=== PATIENT | female | born 1945 | race Caucasian/White ===

== ENCOUNTER → 2016-11-04 | Outpatient (CLI) | payer MEDICARE, OTHER ==
[~2016-11-04] MED LIST: CALC500T50 PO; CHOL2000 PO; CYCL5TAB PO; FEXO180T5 PO; GLUC100018 PO; IRON1CAP17 PO; MULT-246 PO; NAPR500T PO; OMEG300C PO; OMEP20TA PO; RALO60TA PO; TRAM50TA PO
--- NOTE | 2016-11-05 12:29 | PAIN ---
DATE OF SERVICE: 11/04/2016 INITIAL CONSULTATION FOR PAIN CLINIC CHIEF COMPLAINT: Low back and bilateral lower extremity pain, left greater than right. HISTORY OF PRESENT ILLNESS: This is a 70-year-old female who presents with history of pain in the low back and bilateral lower extremities, again slightly worse on the left than the right. For about 2-3 years, the patient reports it gradually increased. It is not as a result of any specific injury or accident that she is aware of. It has been getting worse with time and pain in the low back radiating to the bilateral posterior gluteus, posterior thighs, posterior calves and into the ankles as well as into the lateral and anterior groin to some extent and lateral lower legs. The patient reports standing for over 5-10 minutes become very uncomfortable and painful, sit down to rest decreases the pain. The patient uses an ice pack on the low back which helps shooting pain and decreases some cramping sensations, worse in the morning. She has to stand at the side of the bed for several minutes before she can adjust her back and get the pain to be less and it is shooting into the leg at this time as well. Pain in the hamstrings reaching above her head and in the hips when walking for greater than 10-15 minutes and cramps in the calves as well with standing and with sitting. The patient reports shooting pain is sharp, changes during the day with activity, radiating into the lower extremities as described and a cramping sensation as well. The patient has tried physical therapy in 06/2016 and 07/2016, also still doing some exercises at home, stretching and strengthening exercises. The patient has had previous lumbar surgery in 2004 with fusion at the L3, L4 and L5 spaces. The patient reports it awakens her from sleep occasionally, but not every night. She takes tramadol before she goes to bed. She sleeps better. It does not affect her bowel or bladder control, but does affect her ability to walk significantly. She is using shopping carts to lean on when she is at the store, also using a cane when ambulating as well. The patient reports she has been taking tramadol, Naprosyn and ibuprofen, all of which helped to a [id number] extent. The patient reports her disability rating from 0 to 10, 10 being the worst as a 6 with family and home responsibilities and occupation, 7 with recreation, 4 with social activity, 2 with sexual behavior, 1 with self care and life support activities. The patient had MRI scan dated 09/15/2016 showing [id number] spinal stenosis, limited preserved subarachnoid space at L2-L3 and lateral recess stenosis bilaterally with posterior lateral fusion and posterior decompression at L3-L5, mild grade 1 anterior spondylolisthesis at L3-L4 and L4-L5, multilevel facet degenerative change and advanced degenerative disk disease at L5-S1 with shallow disk osteophyte complex and protrusion greater in the right lateral recess near the descending right S1 nerve root. PAST MEDICAL HISTORY: Significant for arthritis, osteopenia, knee pain, rheumatic fever at age 11, and cataracts. PREVIOUS SURGERY: Include lumbar laminectomy with fusion in 2004, bilateral total knee arthroplasty in 2012, right carpal tunnel release in the past, LASIK procedure and tonsillectomy as a child. CURRENT MEDICATIONS: Include glucosamine, multivitamin, cyclobenzaprine, Naprosyn, fish oil and tramadol, calcium, vitamin D, iron supplements, Evista, fexofenadine, and omeprazole. ALLERGIES: The patient is allergic to WALNUTS, MOLD, POLLEN, DUST, and BAKING POWDER. FAMILY HISTORY: Significant for cancer in the patient's mother and grandmother, maternal grandfather had stroke at age 80. SOCIAL HISTORY: The patient does not drink alcohol, does not smoke. She is , lives with her spouse locally in [place], [place]. She has granddaughters that stays with her about 3-4 days and nights a week on an average. REVIEW OF SYSTEMS: The patient's review of systems is positive for those items mentioned in history of present illness. All systems reviewed and otherwise negative. It is complete, full and well documented on the patient's chart. PHYSICAL EXAMINATION: VITAL SIGNS: Today the patient's blood pressure is 159/90, pulse is 88, respirations 16, temperature is 98.1 degrees Fahrenheit. Height is 5 feet 6 inches, weight is 232 pounds. GENERAL: The patient is awake, alert, oriented, appropriate, very pleasant demeanor. HEENT: Shows normocephalic, atraumatic. Extraocular movements are intact and symmetrical. Oral cavity: Mucous membranes are moist and pink. Dentition is intact. NECK: Shows anterior throat supple without palpable lymphadenopathy noted. Swallow reflex is symmetrical. CHEST: Shows normal on inspection. Breath sounds clear to auscultation bilaterally. HEART: Shows S1 and S2 clear. ABDOMEN: Soft, nontender, nondistended. No palpable organomegaly noted. No rebound or guarding demonstrated. BACK: The patient's back shows midline spine with slight exaggeration of thoracic kyphosis and mild flattening of lumbar lordotic curvature. Well-healed surgical scars noted in the lumbar distribution. Lumbar paraspinous muscle shows some moderate tenderness with palpation in the middle and lower distribution of paraspinous musculature, but it is symmetrical without evidence of atrophy, hypertrophy. No radiation of pain, no trigger points, no asymmetry. No tenderness over the sacrum and sacroiliac regions with palpation. The patient does show good rotational motion of the lumbar spine, both laterally as well as extension and forward flexion with greater than 10 degrees right and left with extension and about 45 degrees of forward flexion with only some minor pain reported with extension only. The patient's lower extremities showed deep tendon reflexes 1+ in the patellar and tendo calcaneus tendons are equal. Motor exam is strong with 5/5 dorsiflexion and extension. Quadriceps and hamstring flexion is approximately 4/5 on the left and 5/5 on the right, but intact bilaterally. Peripheral pulses are 1+ posterior tibial and dorsalis pedis pulses. No peripheral edema is noted. No clubbing, no cyanosis. Lower extremities are warm and dry to touch, equal in color and appearance. Straight leg raise noted to be negative on the right, but slightly positive on the left at about 45 degrees, which is decreased with knee flexion. Gaenslen's and Lebron's maneuvers are grossly negative bilaterally. The patient is able to stand, stand on her toes without significant difficulty or loss of balance, is walking today with a slight shuffling gait, appears to favor the left lower extremity slightly, is not using any assistive devices with her on her visit today. IMPRESSION: 1. This is a 70-year-old female with long history of low back pain, bilateral lower extremity pain, status post lumbar fusion. 2. MRI scan as noted. 3. History of arthritis. PLAN: Options were discussed with the patient including conservative medical management, continued physical therapies, interventional techniques and she would like to pursue interventional techniques. We discussed a caudal approach epidural steroid injection using description as well as anatomical models to describe the procedure. She would like to wait for about one week as it will be better for her schedule to have her return and proceed with this injection at that time. We will try Medrol Dosepak. In the meantime, the patient was given instruction as well as side effects to be aware of with medication and will follow in approximately one week. We will plan on caudal epidural steroid injection at that time. [facility] MD DR: JUAN/stella JOB#: [id number] / [id number]
== END | disposition home or self-care (01) ==
LOC: PNCL 13:28
PROVIDERS: ATTEND Anesthesiology
DX: M54.5 Low back pain (principal); M79.605 Pain in left leg; M79.604 Pain in right leg
CPT/HCPCS: 99214

== ENCOUNTER → 2016-11-11 | Outpatient (CLI) | payer MEDICARE, OTHER ==
[~2016-11-11] MED LIST changes: +IOHEXOL 180 MG/ML 10 ML VIAL. ONE; +methylPREDNISolone ACETATE 40 MG/ML VIAL. ONE; +methylPREDNISolone ACETATE 80 MG/ML VIAL. ONE
--- NOTE | 2016-11-12 02:02 | PAIN ---
DATE OF SERVICE: 11/11/2016 PROGRESS NOTE DIAGNOSES: Lumbar radiculopathy with lumbar spinal stenosis and lumbar post-laminectomy syndrome. HISTORY OF PRESENT ILLNESS: The patient is a 70-year-old female who returns for followup status post initial evaluation and returned today for a caudal epidural steroid injection. The patient reports no significant change in the pain in her low back and bilateral lower extremity pain, left greater than right. The patient reports the pain is a 3 on a scale of 10 currently, it is sharp alternating with dull pain, worse with activity, standing, walking without significant change from previous exam. The patient's old chart was reviewed as her current medication regimen updated. Current review of systems updated today as well. PHYSICAL EXAMINATION: VITAL SIGNS: Today, the patient's blood pressure is 146/84, pulse 77, respirations 18, temperature 98.6 degrees Fahrenheit, height is 5 feet 6 inches and weighs 232 pounds. GENERAL: The patient is awake, alert, oriented, appropriate, very pleasant demeanor. HEENT: Shows normocephalic and atraumatic. Extraocular movements are intact and symmetrical. Oral cavity shows mucous membranes are moist and pink. Dentition is intact. NECK: Shows anterior throat supple. CHEST: Shows normal on inspection. Breath sounds are clear to auscultation bilaterally. HEART: Shows S1 and S2 clear. ABDOMEN: Soft, nontender, and nondistended. BACK: Shows spine grossly in midline. Lumbar paraspinous muscle shows some moderate tenderness to palpation. Well-healed surgical scar is again noted without any radiation of pain bilaterally. EXTREMITIES: Lower extremities show deep tendon reflexes 1+ in the patellar tendons. Motor exam is strong with 5/5 dorsiflexion, extension and 4/5 with left quadriceps and hamstring flexion, approximately 5/5 on the right. PLAN: Options were discussed with the patient. We will proceed with a caudal epidural steroid injection today with fluoroscopic guidance. Risks were again discussed including, but not limited to bleeding, infection, possibility of epidural hematoma and subsequent neurological compromise, dural puncture, headaches, spinal cord and/or nerve damage, side effects of steroid medication and poor results regarding pain control. The patient understands and wished to proceed. The patient will return to clinic in approximately 2 weeks for followup. She was counseled as to return appointment, activity level and side effects to be aware of. DIAGNOSES: Lumbar radiculopathy with lumbar spinal stenosis and post-lumbar laminectomy syndrome. PROCEDURE: Caudal approach epidural steroid injection using C-arm fluoroscopic guidance under sterile prep and drape using local anesthetic. MEDICATIONS INJECTED: Depo-Medrol 120 mg plus 10 mL of preservative-free normal saline and 2 mL Isovue for contrast. The patient's condition at discharge is stable. The patient tolerated the procedure well, had no complications. [facility] MD DR: JUAN/stella JOB#: [id number] / [id number]
== END ==
LOC: PNCL 11:07
PROVIDERS: ATTEND Anesthesiology
DX: M48.06 Spinal stenosis, lumbar region (principal); M54.16 Radiculopathy, lumbar region; M96.1 Postlaminectomy syndrome, not elsewhere classified
CPT/HCPCS: 62323; J1030; J1040

== ENCOUNTER → 2016-11-25 | Outpatient (CLI) | payer MEDICARE, OTHER ==
[~2016-11-25] MED LIST changes: -IOHEXOL 180 MG/ML 10 ML VIAL. ONE; -methylPREDNISolone ACETATE 40 MG/ML VIAL. ONE; -methylPREDNISolone ACETATE 80 MG/ML VIAL. ONE
--- NOTE | 2016-11-25 23:04 | PAIN ---
DATE OF SERVICE: 11/25/2016 DIAGNOSES: Lumbar radiculopathy with lumbar spinal stenosis and post lumbar laminectomy syndrome. HISTORY OF PRESENT ILLNESS: The patient is a 70-year-old female who returns for followup status post caudal approach epidural steroid injection x 1. The patient reports about 80% improvement in her low back and bilateral lower extremity pain, again it was worse on the left than right, but now is much better bilaterally. The patient reports there is occasional pain that is radiating into the lower extremities, but only very infrequently with extensive walking or standing. Patient reports otherwise she is doing well. She has been sleeping well at night. She was on a vacation out of town a few weeks ago, did very well with this right after her injection, was comfortable throughout the trip and is very pleased with that. Patient reports occasional dull pain across the low back as well, but mostly very minimal. The patient reports the pain is 2 on a scale of 10 at its worse. No new motor or sensory deficits. No new bowel or bladder incontinence or other complaints. PHYSICAL EXAMINATION: VITAL SIGNS: The patient's blood pressure is 142/75, pulse 75, respirations 18, temperature 98.6 degrees Fahrenheit, height is 5 feet 6 inches, weight is 230 pounds. GENERAL: The patient is awake, alert, oriented and appropriate, very pleasant demeanor. HEENT: Shows head normocephalic, atraumatic. Extraocular movements are intact and symmetrical. The patient wears eyeglasses. Oral cavity: Mucous membranes moist and pink. Dentition is intact. NECK: Shows anterior throat supple without palpable lymphadenopathy noted. Swallow reflex is symmetrical. Neck shows full rotation and motion of the cervical spine without difficulty or tenderness. CHEST: Shows normal on inspection. Breath sounds are clear to auscultation bilaterally. HEART: Shows S1, S2 clear. ABDOMEN: Soft, nontender, nondistended. BACK: Shows spine grossly midline. Normal appearing thoracic kyphosis and lumbar lordotic curvature. Patient's lumbar paraspinous musculature shows symmetrical on inspection. No evidence of atrophy or hypertrophy. There is some very mild tenderness with palpation in the lower lumbar distribution bilaterally diffusely without radiation. Patient shows good rotation of motion of the lumbar spine both laterally as well as extension and flexion without exacerbation of pain. EXTREMITIES: Lower extremities show deep tendon reflexes at 1+ in the patellar and tendo calcaneus tendons. Motor exam is strong with approximately 5/5 on the right and 4/5 on the left with quadriceps and hamstring flexion, but intact and strong bilaterally. PLAN: Options were discussed with the patient at this time. The patient's old chart was reviewed as her current medication regimen and updated. Current review of systems is updated today as well. We will hold on any further injections per her request. She is doing much better, would like to increase her activity with greater strenuous activities and see how this does. We encourage her to increase her activity as tolerated. She was cautioned as to overdoing it or straining her back with ____ lifting, using the knees to bend and ____ etc. Patient will abide by this. The patient will return to clinic on an as needed basis at this time. [facility] MD DR: JUAN/stella JOB#: [id number] / [id number]
== END | disposition home or self-care (01) ==
LOC: PNCL 09:47
PROVIDERS: ATTEND Anesthesiology
DX: M54.16 Radiculopathy, lumbar region (principal); M48.06 Spinal stenosis, lumbar region; M96.1 Postlaminectomy syndrome, not elsewhere classified
CPT/HCPCS: G0463

== ENCOUNTER → 2017-01-25 | Outpatient (CLI) | payer MEDICARE, OTHER ==
[~2017-01-25] MED LIST changes: +IOHEXOL 180 MG/ML 10 ML VIAL. ONE; +methylPREDNISolone ACETATE 40 MG/ML VIAL. ONE; +methylPREDNISolone ACETATE 80 MG/ML VIAL. ONE
--- NOTE | 2017-01-25 15:44 | PAIN ---
DATE OF SERVICE: 01/25/2017 PROGRESS NOTE FOR PAIN CLINIC DIAGNOSIS: Lumbar radiculopathy with lumbar spinal stenosis and post-pump laminectomy syndrome. HISTORY OF PRESENT ILLNESS: The patient is a 71-year-old female who returns for followup status post caudal epidural steroid injection x 1. The patient has been doing well initially after the injection, but the pain is now beginning to return mildly in the low back, bilateral lower extremities. The patient did have a 100% improvement until about the last 3 weeks. The patient reports that now it is 7-8 on a scale of 10, it is worse with standing, changing position from sitting to standing, has normally about at 2 on a scale of 10, which it is currently on her visit today. The patient reports standing and shooting pain in the bilateral lower extremities, left greater than right. No new motor or sensory deficits; however, no new bowel or bladder incontinence or other complaints, but still significant pain, increasing very mildly from original level. PHYSICAL EXAMINATION: VITAL SIGNS: The patient's blood pressure 137/89, pulse 78, respirations 18, temperature 98.3 degrees fahrenheit, 5 feet 6 inches, weight 232 pounds. GENERAL: The patient is awake, alert, oriented, and appropriate, very pleasant demeanor. HEENT: Head shows normocephalic, atraumatic. Extraocular movements are intact and symmetrical. Oral cavity, mucous membranes are moist and pink. Dentition is intact. NECK: Shows anterior throat supple. Swallow reflex is symmetrical. Neck shows full rotational motion of cervical spine both laterally as well as extension and flexion. CHEST: Shows normal on inspection. Breath sounds are clear to auscultation bilaterally. HEART: Shows S1 and S2 clear. No murmurs auscultated. ABDOMEN: Soft, nontender, nondistended. No palpable organomegaly is noted. BACK: Shows spine grossly midline, also mild flattening of lumbar lordotic curvature, well-healed surgical scar. Lumbar paraspinous muscle shows a mild tenderness with palpation bilaterally, but only with deep palpation in the low lumbar distribution diffusely. No radiation demonstrated. The patient shows no tenderness over the sacrum and sacroiliac regions. EXTREMITIES: Lower extremities shows deep tendon reflexes 2+ in the patellar tendons. Motor exam is strong with approximately 4 on a scale of 5 with left dorsiflexion and extension and 5 out of 5 on the right. Options were discussed with the patient and the patient's old chart was reviewed as her current medication regimen updated. Current review of systems updated today as well. We will proceed with a second caudal approach epidural steroid injection today with fluoroscopic guidance. Risks were again discussed including, but not limited to bleeding, infection, possibility of epidural hematoma, subsequent neurological compromise, dural puncture, headaches, spinal cord and/or nerve damage, side effects of steroid medication and poor results regarding pain control. The patient understands and wishes to proceed. The patient will return to clinic in approximately 2 weeks for followup. She was counseled to return appointment, activity level and side effects to be aware of. DIAGNOSIS: Lumbar radiculopathy with lumbar spinal stenosis and post-pump laminectomy syndrome. PROCEDURE: Caudal approach epidural steroid injection with C-arm fluoroscopic guidance under sterile prep and drape using local anesthetic and C-arm fluoroscopic guidance. MEDICATIONS INJECTED: 120 mg Depo-Medrol plus 10 mL preservative-free normal saline and 2 mL of Isovue for contrast. CONDITION AT DISCHARGE: Stable. The patient tolerated the procedure well, had no complications. [facility] MD DR: JUAN/stella JOB#: [id number] / [id number]
== END | disposition home or self-care (01) ==
LOC: PNCL 09:53
PROVIDERS: ATTEND Anesthesiology
DX: M48.06 Spinal stenosis, lumbar region (principal); M54.16 Radiculopathy, lumbar region; M96.1 Postlaminectomy syndrome, not elsewhere classified
CPT/HCPCS: 62323; J1030; J1040

== ENCOUNTER → 2017-04-05 | Outpatient (CLI) | payer MEDICARE, OTHER ==
--- NOTE | 2017-04-05 23:56 | PAIN ---
DATE OF SERVICE: 04/05/2017 PROGRESS NOTE FOR PAIN CLINIC DIAGNOSES: Lumbar radiculopathy with lumbar spinal stenosis and post-lumbar laminectomy syndrome. HISTORY OF PRESENT ILLNESS: The patient is a 71-year-old female who returns for followup status post caudal epidural steroid injections x 2, last seen on 01/25/2017. The patient reports she did very well with about a 50% improvement overall. Initially about 100%, then dropped to 80. After last injection has been better, about 50% overall improvement in low back, bilateral lower extremity pain. The patient reports still some pain in that region anywhere from 1-5 on a scale of 10, currently at 1 today, aching, sharp, shooting off and on, not completely persistent at all times. The patient reports she is sleeping well at night, does not awaken her from sleep. She sleeps 8 hours at night. Pain does not bother when she is lying down or sitting, mostly just with walking, standing, change in positions. The patient reports no new motor or sensory deficits, no new bowel or bladder incontinence or other complaints. PHYSICAL EXAMINATION: VITAL SIGNS: The patient's blood pressure 149/99, pulse 71, respirations are 18, temperature 98.1 degrees Fahrenheit. Height is 5 feet 7 inches, weight is 235 pounds. GENERAL: The patient is awake, alert, oriented, appropriate, very pleasant demeanor. HEENT: Head shows normocephalic, atraumatic. Extraocular movements are intact and symmetrical. Oral cavity shows mucous membranes moist and pink. Dentition is intact. NECK: Shows anterior throat supple without palpable lymphadenopathy noted. Swallow reflex is symmetrical. CHEST: Shows normal on inspection. Breath sounds are clear to auscultation bilaterally. HEART: Shows S1 and S2 clear. No murmurs auscultated. ABDOMEN: Soft, nontender, nondistended. No palpable organomegaly, no rebound or guarding demonstrated. BACK: Shows spine grossly in the midline. Well-healed surgical scar is noted in the lumbar distribution, some mild flattening of lumbar lordotic curvature. Lumbar paraspinous muscle shows some very mild tenderness, but only with deep palpation in the lower lumbar distribution diffusely in the paraspinous muscles. No tenderness over the sacrum or sacroiliac regions. EXTREMITIES: Lower extremities show deep tendon reflexes 2+ in the patellar, 1+ tendo-calcaneus tendons are equal. Motor exam is approximately 4 on a scale of 5 with left dorsiflexion, extension at 5/5 on the right, otherwise 5/5 and equal. Options were discussed with the patient. The patient's old chart was reviewed as her current medication regimen updated. Current review of systems updated today as well. We will proceed with the third in the series of caudal approach epidural steroid injection today. Risks were again discussed including, but not limited to bleeding, infection, possibility of epidural hematoma, subsequent neurologic compromise, dural puncture, headaches, spinal cord and/or nerve damage, side effects of steroid medication and poor results regarding pain control. The patient understands and wishes to proceed. The patient will return to clinic in approximately 2 weeks for followup, was counseled on return appointment, activity level and side effects to be aware of. DIAGNOSES: Lumbar radiculopathy with lumbar spinal stenosis and post-lumbar laminectomy syndrome. PROCEDURE: Caudal approach epidural steroid injection using C-arm fluoroscopic guidance under sterile prep and drape using local anesthetic. MEDICATION INJECTED: 120 mg of Depo-Medrol plus 10 mL of preservative-free normal saline and 2 mL of Isovue for contrast. CONDITION AT DISCHARGE: Stable. The patient tolerated the procedure well, had no complications. [facility] MD DR: JUAN/stella JOB#: [id number] / [id number]
== END | disposition home or self-care (01) ==
LOC: PNCL 08:53
PROVIDERS: ATTEND Anesthesiology
DX: M48.06 Spinal stenosis, lumbar region (principal); M54.16 Radiculopathy, lumbar region; M96.1 Postlaminectomy syndrome, not elsewhere classified
CPT/HCPCS: 62323; J1030; J1040; 62321

== ENCOUNTER → 2017-07-09 | Outpatient (CLI) | payer MEDICARE, OTHER ==
[~2017-07-09] MED LIST changes: -CALC500T50 PO; +CALC500T54 PO; +FEXO180T16 PO; -FEXO180T5 PO; -IOHEXOL 180 MG/ML 10 ML VIAL. ONE; -OMEP20TA PO; +OMEP20TA8 PO; -methylPREDNISolone ACETATE 40 MG/ML VIAL. ONE; -methylPREDNISolone ACETATE 80 MG/ML VIAL. ONE
--- NOTE | 2017-07-09 13:27 | KCIC ---
MRI Lumbar Spine without contrast History: Lumbar stenosis, previous surgery, chronic back pain worse the last 3 months, bilateral radiculopathy Technique: Multiplanar, multi sequential noncontrast MR imaging was performed of the lumbar spine. Contrast: None Comparison: September 15, 2016 Findings: There is mild motion degradation. Lumbar vertebral body stature is maintained. There again has been posterolateral fusion L3-L5. There is again grade 1 anterior spondylolisthesis at L3-4 and L4-5. There is again advanced degenerative disc disease L4-5 and L5-S1, moderate degenerative disc disease L3-4 and minimally L2-3. Conus terminates at L1. There is no significant marrow edema. There is mild lumbar levoscoliosis. L1-L2: There is negligible bulge. Spinal canal and neural foramina are adequate. There is mild buckling of the ligamentum flavum and facet hypertrophic change. L2-L3: There is again severe buckling of the ligamentum flavum and moderate facet hypertrophic change. There is again minimal disc osteophyte complex, superimposed bulge somewhat greater. Combination of findings results in severe spinal stenosis, lateral recess stenosis bilaterally. There is very limited preserved subarachnoid space. There is buckling of the nerve roots above this level. There is again [id number] right and mild left neural foramina compromise. L3-L4: There again has been posterior decompression. Spinal canal and neural foramina are adequate. L4-L5: There again has been posterior decompression. Neural foramina and spinal canal are adequate. L5-S1: There is again disc osteophyte complex and shallow protrusion greater in the right lateral recess, again near descending right S1 nerve root. There is again mild narrowing of the far right lateral recess. There is again bilateral facet degenerative change greater on the left. Accurate evaluation of the neural foramina is again limited due to artifact from hardware, probable moderate narrowing on the left and possible mild to moderate narrowing on the right. Impression: 1. There is severe spinal stenosis L2-3, bulge at this level somewhat greater. 2. There again has been posterolateral fusion L3-L5. There has been posterior decompression at L3-4 and L4-5. 3. There is neural foramina compromise as stated, limited evaluation of the L5-S1 neural foramina due to artifact from hardware. 4. There is advanced degenerative disc disease L4-5 and L5-S1, to lesser degree L3-4 and L2-3. Electronically signed by: Humberto Falcon MD (07/09/2017 1:24 PM) [email or web address]
== END | disposition home or self-care (01) ==
LOC: KCIC MRI 12:14
PROVIDERS: ATTEND Family Medicine
DX: M48.06 Spinal stenosis, lumbar region (principal); M51.26 Other intervertebral disc displacement, lumbar region; M54.16 Radiculopathy, lumbar region; M51.36 Other intervertebral disc degeneration, lumbar region; G89.29 Other chronic pain
CPT/HCPCS: 72148

== ENCOUNTER → 2017-07-12 | Outpatient (CLI) | payer MEDICARE, OTHER ==
[~2017-07-12] MED LIST changes: +IOHEXOL 180 MG/ML 10 ML VIAL. ONE; +methylPREDNISolone ACETATE 40 MG/ML VIAL. ONE; +methylPREDNISolone ACETATE 80 MG/ML VIAL. ONE
--- NOTE | 2017-07-12 22:43 | PAIN ---
DATE OF SERVICE: 07/12/2017 PROGRESS NOTE FOR PAIN CLINIC DIAGNOSES: Lumbar radiculopathy with lumbar spinal stenosis and post-lumbar laminectomy syndrome. HISTORY OF PRESENT ILLNESS: The patient is a 71-year-old female who returns for followup status post caudal epidural steroid injections, last seen 04/05/2017. The patient did very well with the procedures with about 70% improvement overall. The patient reports the pain returning now in the low back and bilateral lower extremities, mostly in the posterior gluteus, posterior thighs, into the posterior calf becoming more constant, it is cramping, shooting, sharp pains radiating to the lower extremities, rated as 7 on a scale of 10 at its worse, 4 at the average is about 1 at least. The patient reports it is better with sitting down or lying down, worse with standing and walking. The patient reports it does not awaken her from sleep at night. She is sleeping well, reports no new motor or sensory deficits. No new bowel or bladder incontinence or other complaints. PAST MEDICAL AND SURGICAL HISTORY: Significant for arthritis, osteopenia, knee pain, rheumatic fever, cataract extractions, and also lumbar laminectomy with fusion in 2004, bilateral total knee replacements, carpal tunnel replaced, LASIK procedure, and tonsillectomy. CURRENT MEDICATIONS: Include glucosamine, iron supplements, cyclobenzaprine, Naprosyn, fexofenadine, omeprazole, tramadol, calcium, and glucosamine. ALLERGIES: The patient is allergic to WALNUTS, MOLE, DUST, BAKING POWDER, AND POLLEN. FAMILY HISTORY: Significant for cancer in patient's mother and grandmother and strokes as well. SOCIAL HISTORY: The patient does not drink alcohol, does not smoke. She is , lives with her spouse, has granddaughter that stays with her about 3-4 days and nights a week on average. REVIEW OF SYSTEMS: Positive for those items mentioned in the history of present illness. All systems reviewed and otherwise negative. It is complete, full and well documented on the patient's chart. PHYSICAL EXAMINATION: VITAL SIGNS: The patient's blood pressure is 117/74, pulse is 82, respirations 18, temperature 98.2 degrees Fahrenheit, height is 5 feet 6 inches, weight is 232 pounds. GENERAL: The patient is awake, alert, oriented, appropriate, very pleasant demeanor. HEENT: Shows normocephalic, atraumatic. Extraocular movements are intact, symmetrical. Oral cavity: Mucous membranes are moist and pink. Dentition is intact. NECK: Shows anterior throat supple without palpable lymphadenopathy noted. Swallow reflex is symmetrical. CHEST: Shows normal on inspection. Breath sounds are clear to auscultation bilaterally. HEART: Shows S1 and S2 clear. No murmurs auscultated. ABDOMEN: Obese, soft, nontender, nondistended. BACK: Shows spine grossly in midline, well healed surgical scars noted in the lumbar distribution. Lumbar paraspinous musculature shows symmetrical with moderately tender with palpation, but only diffusely in the lower lumbar distribution without radiation. No tenderness over the sacrum or sacroiliac regions. EXTREMITIES: Lower extremities showed deep tendon reflexes 2+ in the patellar, 1+ tendo-calcaneus tendons are equal. Motor exam is approximately 4 on a scale of 5, on the left dorsiflexion and extension are 5/5, on the right quadriceps and hamstring flexion are 5/5 bilaterally. Peripheral pulses are 1+ posterior tibial and dorsalis pedis pulses. No peripheral edema is noted. Options were discussed with the patient and the patient's old chart was reviewed as her current medication regimen updated. Current review of systems updated today as well. We will proceed with a caudal approach epidural steroid injection today with fluoroscopic guidance. Risks were again discussed including, but not limited to bleeding, infection, possibility of epidural hematoma and subsequent neurologic compromise, dural puncture, headaches, spinal cord and/or nerve damage, side effects of steroid medication and poor results regarding pain control. The patient understands and wishes to proceed. The patient will return to clinic in approximately 2 weeks for followup, was counseled on return appointment, activity level and side effects to be aware of. DIAGNOSES: Lumbar radiculopathy with lumbar spinal stenosis and post-lumbar laminectomy syndrome. PROCEDURE: Caudal approach epidural steroid injection using C-arm fluoroscopic guidance under sterile prep and drape using local anesthetic. Medication injected a total of 120 mg Depo-Medrol plus 10 mL preservative-free normal saline and 2 mL of Isovue for contrast. CONDITION AT DISCHARGE: Stable. The patient tolerated procedure well, had no complications. [place] MD DR: JUAN/stella JOB#: [id number] / [id number]
== END | disposition home or self-care (01) ==
LOC: PNCL 09:56
PROVIDERS: ATTEND Anesthesiology
DX: M48.06 Spinal stenosis, lumbar region (principal); M96.1 Postlaminectomy syndrome, not elsewhere classified; M19.91 Primary osteoarthritis, unspecified site; Z91.048 Other nonmedicinal substance allergy status
CPT/HCPCS: 62323; J1030; J1040

== ENCOUNTER → 2017-08-30 | Outpatient (CLI) | payer MEDICARE, OTHER ==
[~2017-08-30] MED LIST changes: -IOHEXOL 180 MG/ML 10 ML VIAL. ONE; -methylPREDNISolone ACETATE 40 MG/ML VIAL. ONE; -methylPREDNISolone ACETATE 80 MG/ML VIAL. ONE
[2017-08-30 11:39] LABS: BASO # 0.1 x10^3/uL (0.0-0.2); BASO % 1 % (0-3); EOS % 1 % (0-3); HEMATOCRIT 42.9 % (36.0-47.0); LYMPH # 2.2 x10^3/uL (1.0-4.8); LYMPH % 29 % (24-48); MEAN CORPUSCULAR HEMOGLOBIN 31 pg (25-35); MEAN CORPUSCULAR HGB CONC 33 g/dL (31-37); MEAN CORPUSCULAR VOLUME 93 fL (79-100); MONO % 7 % (0-9); NEUT % 63 % (31-73); PLATELET COUNT 299 x10^3/uL (140-400); RED BLOOD COUNT 4.59 x10^6/uL (3.50-5.40); RED CELL DISTRIBUTION WIDTH 14.6 % (11.5-14.5); WHITE BLOOD COUNT 7.8 x10^3/uL (4.0-11.0)
[2017-08-30 11:48] LABS: INR 0.9 (0.8-1.1); PROTHROMBIN TIME PATIENT 11.9 SEC (11.7-14.0)
[2017-08-30 12:03] LABS: ALBUMIN 3.3 g/dL (3.4-5.0); ALBUMIN/GLOBULIN RATIO 0.8 (1.0-1.7); CALCIUM 8.9 mg/dL (8.5-10.1); CREATININE 0.9 mg/dL (0.6-1.0); GFR 61.9; POTASSIUM 3.6 mmol/L (3.5-5.1); TOTAL BILIRUBIN 0.4 mg/dL (0.2-1.0); TOTAL PROTEIN 7.4 g/dL (6.4-8.2)
--- NOTE | 2017-09-03 16:02 | HP ---
ADMIT DATE: 09/03/2017 Dorian Pathak APRN, dictating for Dr. Kurtis Britton. Preoperative history and physical for surgery scheduled on 09/06/2017. HISTORY OF PRESENT ILLNESS: The patient is a pleasant 71-year-old, who in 2004 underwent lumbar surgery, which include an instrumented fusion from L3 through L5. She did well from that surgery with virtual complete resolution of her pain. She said that in 2013, she again developed lower back pain and pain which radiated into her legs. She notes right greater than left posterior and lateral thigh pain as well as bilateral leg cramping. When she stands and walks distances, she feels that there is weakness in her legs. She rates her pain as a 1/10 now. She says walking can cause her pain to be a 4-5/10. Standing and walking increases her pain. Tramadol and ice help her. She takes tramadol and naproxen. She is retired. She had physical therapy about 1 year ago and does home exercises, which she finds to be helpful. She also had epidural steroid injection this year, which she said lasted for a short time. PAST MEDICAL HISTORY: Arthritis, artificial knees, tonsillitis and ulcers. PAST SURGICAL HISTORY: Tonsillectomy in childhood, carpal tunnel release 1994, lumbar surgery in 2004, LASIK surgery in 2007 and bilateral knee replacement in 2011. FAMILY HISTORY: Cancer. SOCIAL HISTORY: Retired. . Exercises daily. Denies substance abuse. Denies tobacco use. Drinks alcohol one to two times per year. Drinks coffee and soda as well as tea. ALLERGIES: No known allergies. CURRENT MEDICATIONS: Tramadol, Naprosyn, omeprazole, raloxifene, fexofenadine, fish oil, multivitamin, calcium with magnesium, vitamin D, ibuprofen. REVIEW OF SYSTEMS: A 12-point review of systems was obtained and is noncontributory except for that mentioned above. PHYSICAL EXAMINATION: NEUROSURGERY EXAMINATION: GENERAL APPEARANCE: Alert, pleasant, in no acute distress. HEAD: Normocephalic, atraumatic. SKIN: Warm and dry. MUSCULOSKELETAL: Lumbar paraspinal muscle bulk is normal, restricted range of motion of lumbar spine, [id number] tenderness of lower lumbar spine with palpation, normal range of motion of the lower extremities bilaterally. EXTREMITIES: No clubbing, cyanosis, or edema. NEUROLOGIC: Alert and oriented x 3, normal recent and remote memory, strength 5/5 in bilateral lower extremities, sensory was intact to light touch in the lower extremities bilaterally, reflexes were present and symmetric in bilateral lower extremities, negative straight leg raising bilaterally, normal gait. IMAGING: Reviewed. I reviewed a recent lumbar MRI scan. On that study, her fusion is well seen. She is developing at L5-S1, right-sided lateral recess narrowing. However, L2-L3 she has developed severe lumbar spinal stenosis. There is buckling of the nerve roots about this level. ASSESSMENT: Spinal stenosis, lumbar region with neurogenic claudication. PLAN: She has developed severe lumbar spinal stenosis at the level above her previous instrumented fusion. She has been treated with conservatively and received epidural steroid injections as well as physical therapy. Neither of these things helped her and her problems are progressing. She is going to require wide decompression at L2-L3 with the stenosis. Because of the fusion extending from L3 to L5, her fusion should be extended up to L2. I discussed all this with her in detail including the technique, risk and expected postoperative course. She understands. She would like to go ahead. We will make the arrangements. KURTIS BRITTON MD DR: PAU/stella JOB#: [id number] / [id number]
== END | disposition home or self-care (01) ==
LOC: SURGPAT 10:17
PROVIDERS: ATTEND Neurological Surgery
DX: M54.16 Radiculopathy, lumbar region (principal)
CPT/HCPCS: 36415; 80053; 85025; 85610; 85730; 87641

== ENCOUNTER → 2017-12-13 | Outpatient (CLI) | payer MEDICARE, OTHER | END | disposition home or self-care (01) | LOC: KCIC 11:35 | DX: M43.26 Fusion of spine, lumbar region (principal); M51.37 Other intervertebral disc degeneration, lumbosacral region; M43.16 Spondylolisthesis, lumbar region; Z98.890 Other specified postprocedural states; Z98.1 Arthrodesis status | CPT/HCPCS: 72100 ==

== ENCOUNTER → 2018-05-24 | Outpatient (CLI) | payer MEDICARE, OTHER ==
[2018-05-24 14:49] LABS: ISTAT CREATININE 0.6 mg/dL (0.6-1.1)
[2018-05-24] MEDS: GADOBUTROL 10 MMOL/10 ML VIAL IV (14:50)
== END | disposition home or self-care (01) ==
LOC: KCIC US 12:44
DX: G45.9 Transient cerebral ischemic attack, unspecified (principal)
CPT/HCPCS: 70553; 82565; 93880; A9585

== ENCOUNTER → 2019-10-09 | Outpatient (CLI) | payer MEDICARE, OTHER ==
[2017-09-07 11:15] VITALS: BP 113/64
[~2019-10-09] MED LIST changes: +CYCL10TA2 PO; +DOCU-109 PO; +GABA300C18 PO; +HYDR-2765 PO; +METH750T2 PO; +NAPR-677 PO; +NAPR-683 PO; -NAPR500T PO
--- NOTE | 2019-10-09 17:15 | KCIC ---
CT HEAD WO CONTRAST Date: 10/09/2019 11:00 AM Clinical Indication: Comparison: None. Technique: 5 mm axial tomographic images were obtained of the head without contrast. These were viewed on brain and bone windows. One or more of the following dose reduction techniques were utilized: Automated exposure control (AEC), Adjustment of mA and/or kV according to patient size, Use of iterative reconstruction technique such as ASiR, CT scan done according to ALARA and image gently/image wisely Findings: Mild generalized cerebral and cerebellar volume loss. Mild nonspecific periventricular hypoattenuation, most commonly seen with chronic small vessel ischemic disease. Calcified atherosclerosis of the bilateral cavernous and paraclinoid internal carotid arteries and intracranial vertebral arteries. No intra- or extra-axial mass or fluid collection. No acute hemorrhage. The ventricles are normal in size, shape, and morphology. The blanchard-white matter junction is normal. The subarachnoid cisterns are patent. Left maxillary sinus mucus retention cyst. The visualized portions of the orbits and globes are normal. The mastoid air cells are clear. The material hauler topogram shows no lytic lesion or fracture. Impression: No acute intracranial process. Mild cerebral volume loss. Mild chronic small vessel ischemic disease. Electronically signed by: Humberto Park MD (10/09/2019 5:12 PM) [email or web address]
== END | disposition home or self-care (01) ==
LOC: KCIC CT 10:28
PROVIDERS: ATTEND Family Medicine
DX: I67.82 Cerebral ischemia (principal); I65.23 Occlusion and stenosis of bilateral carotid arteries; G93.89 Other specified disorders of brain; J34.1 Cyst and mucocele of nose and nasal sinus
CPT/HCPCS: 70450

== ENCOUNTER → 2021-09-22 | Outpatient (CLI) | payer MEDICARE, OTHER ==
[2017-09-07 11:15] VITALS: BP 113/64
[~2021-09-22] MED LIST changes: +CYCL10TA19 PO; -CYCL10TA2 PO; +GADOTERATE 7.5 MMOL/15ML VIAL. IVP ONE; +METH-562 PO; -METH750T2 PO
--- NOTE | 2021-09-22 17:12 | RAD ---
EXAM: MRI pelvis with and without contrast. HISTORY: Endometrial distention, uterine mass. TECHNIQUE: MRI of the pelvis was performed before and after the intravenous administration of 17 mL C lariscan. COMPARISON: 09/12/2021. FINDINGS: The uterus is anteverted and measures 6.9 x 4.8 x 3.3 cm. A myometrial fibroid along the le ft aspect of the lower uterine segment measures 15 x 13 mm. The endometrial stripe is thickened in a postmenopausal patient at 11 mm and contains T1 precontrast hyperintense material. No endometrial mas s is identified. Both ovaries are unremarkable in a postmenopausal patient. There is no free pelvic fluid. There are n o pathologically enlarged lymph nodes. Changes of lumbar fusion are partially visualized. There is grade 1 anterolisthesis at L4-5. Degenera tive disc disease is severe at L4-5 and moderate at L5-S1. Neural foraminal stenosis is moderate to s evere on the right and moderate on the left at L5-S1. IMPRESSION: 1. The endometrium is distended with complicated fluid, but no endometrial mass is detectable by MRI. Correlate for cervical stenosis. Hysteroscopy could further evaluate if there is persistent concern. 2. 1.5 cm myometrial fibroid on the left. Electronically signed by: Nyla Causey MD (09/22/2021 5:10 PM) [id number]
== END ==
LOC: MRI 10:36
PROVIDERS: ATTEND Family Medicine
DX: N85.8 Other specified noninflammatory disorders of uterus (principal); D26.1 Other benign neoplasm of corpus uteri; R93.89 Abnormal findings on diagnostic imaging of other specified body structures; N85.4 Malposition of uterus; M43.16 Spondylolisthesis, lumbar region; M51.37 Other intervertebral disc degeneration, lumbosacral region; M48.07 Spinal stenosis, lumbosacral region; Z98.1 Arthrodesis status
CPT/HCPCS: 72197; A9575